=== PATIENT | male | born 1980 | race African-American/Black ===

== ENCOUNTER 2017-01-07 08:07 | Observation (INO) | payer BC, OTHER, SELFPAY ==
[~2017-01-07 08:07] MED LIST: Regadenoson 0.4 MG/5 ML SYRINGE ONE
[2017-01-07 08:39] LABS: Hematocrit 52.1 % (42.0-52.0); Mean Platelet Volume 9.8 fL (7.4-10.4); Red Blood Cell (RBC) Count 5.67 mill/uL (4.70-6.10); White Blood Cell (WBC) Count 7.6 thou/uL (4.8-10.8)
[2017-01-07 08:41] LABS: PTT 30.4 SEC (22.9-36.1); Prothrombin Time 13.5 SEC (12.0-14.7)
--- NOTE | 2017-01-07 08:42 | RAD ---
PORTABLE CHEST ONE VIEW: 01/07/2017 8:23 a.m. HISTORY: Chest pain. COMPARISON: 10/13/2015 FINDINGS: The heart size is prominent but stable. The lungs are well expanded without focal areas of consolid ation, pneumothorax, eliane pulmonary edema, or pleural effusions. IMPRESSION: No acute process. POS: SILAS
[2017-01-07 08:55] LABS: Digoxin Less than 0.15 ng/mL (0.8-2.0)
[2017-01-07 08:57] LABS: ALT (SGPT) 61 U/L (8-55); AST (SGOT) 25 U/L (5-34); Alkaline Phosphatase 93 U/L (40-150); Anion Gap 10 mmol/L (10-20); BUN (Urea Nitrogen) 14 mg/dL (8.9-20.6); Bilirubin, Total 0.5 mg/dL (0.2-1.2); CK (CPK) 501 U/L (30-200); Calc. Creatinine Clearance 0 mL/min (70-130); Calcium 9.7 mg/dL (7.8-10.44); Carbon Dioxide 25 mmol/L (22-29); Chloride 105 mmol/L (98-107); Estimated GFR-MDRD Greater than 90; Globulin 3.8 g/dL (2.4-3.5); Lipase 91 U/L (8-78); Protein, Total 7.9 g/dL (6.0-8.3)
[2017-01-07 09:01] LABS: Troponin I Less than 0.010 ng/mL (< 0.028)
[2017-01-07 09:27] LABS: Band 1 % (5-11); Neutrophil 53 % (42-75); Reactive Lymphocytes 1 % (0-10)
[2017-01-07] MEDS ORDERED: Aspirin 325 MG TAB ONE (09:45)
[2017-01-07] MEDS ORDERED: Nitroglycerin 2% Ointment 1 INCH/1 GM Packet ONE (09:45)
[2017-01-07] MEDS ORDERED: Bisacodyl 5 MG TAB PO PRN (10:22)
[2017-01-07] MEDS ORDERED: Acetaminophen 325 MG TAB PO PRN (10:22)
[2017-01-07] MEDS ORDERED: Acetaminophen 650 MG Suppository PR PRN (10:22)
[2017-01-07] MEDS ORDERED: Nitroglycerin 0.4 MG TAB (25 Tab Bottle) PO PRN (10:22)
[2017-01-07] MEDS ORDERED: Morphine 2 MG/ML SYRINGE SLOW IVP PRN (11:10)
--- NOTE | 2017-01-07 11:40 | HP ---
PRIMARY CARE PHYSICIAN: Wei Morocho M.D. CHIEF COMPLAINT: Chest pain. HISTORY OF PRESENT ILLNESS: Mr. Washburn is a pleasant 36-year-old gentleman who was seen at [facility] on 01/07/2017. He reports that he developed retrosternal chest pain around 06:45 a.m. today. He reports that it is over the lower part of his chest, pressure-like sensation, 10/10 at its worst, currently 7/10, not accompanied by shortness of breath or nausea. No known aggravating or relieving factors and nonradi ating. He came to the emergency room because of ongoing chest pain. He had a nuclear stress test in 11/2014, which showed mild hypokinesis of the inferior wall and no r eversible defect. The following complete review of systems was negative, unless otherwise mentioned in the HPI or belo w: Constitutional: Weight loss or gain, sense of well-being, ability to conduct usual activities, exer cise tolerance. Skin/Breast: Rash, itching, changes in hair growth or loss, nail changes, breast lumps, tenderness, swelling, nipple discharge. Eyes: Vision, double vision, tearing, blind spots, pain. ENT/Mouth: Headaches (location, time of onset, duration, precipitating factors), vertigo, lighthead edness, injury. Vision, double vision, tearing, blind spots, pain, nose bleeding, colds, obstruction , discharge, dental difficulties, gingival bleeding, dentures, neck stiffness, pain, tenderness, mas ses in thyroid or other areas. Cardiovascular: Precordial pain, substernal distress, palpitations, syncope, dyspnea on exertion, o rthopnea, nocturnal paroxysmal dyspnea, edema, cyanosis, hypertension, heart murmurs, varicosities, phlebitis, claudication. Respiratory: Pain, shortness of breath, wheezing, stridor, cough, hemoptysis, fever or night sweats . Gastrointestinal: Poor appetite, dysphagia, indigestion, abdominal pain, heartburn, eructation, kavita sea, vomiting, hematemesis, jaundice, constipation, or diarrhea, abnormal stools (fanny-colored, alberto y, bloody, greasy, foul smelling), flatulence, hemorrhoids, recent changes in bowel habits. Genitourinary: Urgency, frequency, dysuria, nocturia, hematuria, polyuria, oliguria, unusual (or ch julia in) color of urine, stones, hesitancy, change in size of stream, dribbling, acute retention or incontinence, libido, potency. Musculoskeletal: Pain, swelling, redness or heat of muscles or joints, limitation, of motion, muscu lar weakness, atrophy, cramps. Neurologic/Psychiatric: Convulsions, paralyses, tremor, incoordination, paraesthesias, difficulties with memory of speech, sensory or motor disturbances, or muscular coordination (ataxia, tremor), em otional problems, anxiety, depression, previous psychiatric care, unusual perceptions, hallucination s. Allergy/Immunologic: Skin rash, anemia, bleeding tendency, polydipsia, polyuria, intolerance to hea t or cold. PAST MEDICAL HISTORY: Significant for obstructive sleep apnea syndrome, hypertension, and morbid ob esity. PAST SURGICAL HISTORY: Significant for appendectomy, tonsillectomy, and adenoidectomy. SOCIAL HISTORY: Occasional alcohol use, denies tobacco or recreational drug use. FAMILY HISTORY: Reports multiple family members with stroke, diabetes, high blood pressure, and mal ignancy. ALLERGIES: No known drug allergies. HOME MEDICATIONS: He does not recall the names of his home medications. He thinks he takes 2 medic ations for his blood pressure. PHYSICAL EXAMINATION: GENERAL: On examination, Mr. Washburn is awake and alert, not in acute distress. VITAL SIGNS: Blood pressure is 131/79, pulse is 77. He is breathing at rate of 16 and saturating 9 8% on room air. He is afebrile. He is morbidly obese. EYES: No scleral icterus, no conjunctival pallor. ENT: Moist mucosal membranes, no oropharyngeal erythema or exudates. NECK: Supple, nontender, normal range of movement, trachea is midline. RESPIRATORY: Accessory muscles of breathing are not active. Chest wall movements are symmetric barry aterally. LUNGS: Clear to auscultation without wheeze, rhonchi or crepitations. CARDIOVASCULAR: S1 and S2 are heard, regular. Peripheral pulses are palpable. No carotid bruit, n o pericardial rub. ABDOMEN: Distended, nontender, bowel sounds heard, no hepatomegaly, no splenomegaly. NEUROLOGIC: Cranial nerves II-XII are intact. Deep tendon reflexes are 2+. PSYCHIATRIC: Normal mood, normal affect, patient is oriented to person, place and time. MUSCULOSKELETAL: Power is 5/5 in all 4 extremities, normal range of movement at all major extremity joints. SKIN: Multiple warts present, no other rashes or subcutaneous nodules. LYMPHATIC: No cervical lymphadenopathy. IMAGING AND LABORATORY DATA: Mr. Washburn's labs and investigations were reviewed. I reviewed his e lectrocardiogram, which shows normal sinus rhythm, no ST changes to suggest an acute coronary syndro me. I also reviewed his chest x-ray, which does not show any pulmonary infiltrates. Laboratory inv estigation show normal white count, normal hemoglobin, normal platelet count, INR 1.0, normal electr olytes, normal creatinine, normal AST, elevated ALT of 61, normal alkaline phosphatase, normal total bilirubin, elevated CK of 501, normal troponin I, BNP less than 10, normal albumin, and elevated gl obulin of 3.8. Lipase is elevated at 91. ASSESSMENT AND PLAN: Mr. Washburn is a pleasant 36-year-old gentleman who was seen at [facility] on 01/07/2017. His problem list includes: 1. Chest pain: Exact etiology unclear at this time. Mr. Washburn will be admitted to the hospital for observation and further workup, including stress test, telemetry monitoring. I will also check his D-dimer to rule out pulmonary embolism. He will receive pain medications as needed and nitrates as needed. We will also start him on aspirin. 2. Hypertension: Continue home medications once clarified, monitor vital signs and titrate antihyp ertensives as needed. 3. Abnormal liver function tests: Likely secondary to rhabdomyolysis, given isolated elevation of ALT. 4. Rhabdomyolysis: CK is mildly elevated. Provide intravenous hydration. 5. Elevated lipase: Etiology is unclear. The patient does not complain of any abdominal pain, abd omen is nontender. Likely not a significant finding. Many thanks for allowing me to participate in your patient's care. Please feel free to contact me w ith any questions or concerns. LEVEL OF RISK: High. LEVEL OF COMPLEXITY: High.
[2017-01-07 11:57] VITALS: BMI 34.7
[2017-01-07 12:53] LABS: Troponin I Less than 0.010 ng/mL (< 0.028)
[2017-01-07 14:43] LABS: Amphetamine Not Detected (NotDetected); Methadone Not Detected (NotDetected); Methamphetamine Not Detected (NotDetected)
[2017-01-07] MEDS ORDERED: ISOVUE-370 76%-LOCM 1 ML ONE (15:04)
[2017-01-07] MEDS ORDERED: Regadenoson 0.4 MG/5 ML SYRINGE ONE (15:13)
[2017-01-07 15:59] LABS: Troponin I Less than 0.010 ng/mL (< 0.028)
[2017-01-07] MEDS: Sodium Chloride 0.9% 1,000 ML IV SCH (16:47)
--- NOTE | 2017-01-07 17:23 | NM ---
CARDIAC SPECT: CLINICAL HISTORY: 36-year-old male with chest pain. TECHNIQUE: A stress-only myocardial perfusion scan was performed following the intravenous administration of 33 mCi technetium-99m sestamibi. Pharmacologic stress with Lexiscan was monitored and interpreted by Chacho Peters. FINDINGS: Homogeneous tracer distribution is seen in the myocardial segments on the post stress images. GATED SPECT LVEF: 56%. WALL MOTION EXAM: Normal. IMPRESSION: Normal post stress myocardial perfusion scan. POS: SILAS
--- NOTE | 2017-01-07 20:08 | CT ---
CONTRAST ENHANCED CTA OF THE CHEST: History: 36-year-old male with history of chest pain, shortness of breath. Technique: Contrast enhanced CTA of the chest performed. 2D and 3D reconstructed images performed on independent workstation. FINDINGS: There is no evidence of pulmonary parenchymal masses or lesion. No evidence of mediastinal axillary or hilar pathology seen. No evidence of aortic abnormality seen. Coronary arteries demonstrate no significant evidence of calcifications. No evidence of filling defects seen in the pulmonary arteries to suggest pulmonary emboli. IMPRESSION: Unremarkable CTA chest. POS: SILAS
[2017-01-08] MEDS: Sodium Chloride 0.9% 1,000 ML IV SCH (00:38)
[2017-01-08 05:12] LABS: Anion Gap 9 mmol/L (10-20); BUN (Urea Nitrogen) 10 mg/dL (8.9-20.6); Calc. Creatinine Clearance 200 mL/min (70-130); Calcium 9.1 mg/dL (7.8-10.44); Carbon Dioxide 26 mmol/L (22-29); Chloride 107 mmol/L (98-107); Estimated GFR-MDRD Greater than 90
[2017-01-08 05:42] LABS: Hematocrit 45.7 % (42.0-52.0); Mean Platelet Volume 9.6 fL (7.4-10.4); Neutrophil 45 % (42-75); Reactive Lymphocytes 3 % (0-10); Red Blood Cell (RBC) Count 5.15 mill/uL (4.70-6.10); White Blood Cell (WBC) Count 5.5 thou/uL (4.8-10.8)
[2017-01-08] MEDS ORDERED: Aspirin 325 MG TAB PO SCH (09:00)
[2017-01-08 11:53] VITALS: BP 142/81; TEMP 98.4
--- NOTE | 2017-01-08 12:40 | DIS ---
PRIMARY CARE PROVIDER: Wei Morocho M.D. DATE OF ADMISSION: 01/07/2017 DATE OF DISCHARGE: 01/08/2017 DISCHARGE DIAGNOSES: Chest pain. CONDITION OF PATIENT AT THE TIME OF DISCHARGE: Stable. I assessed Mr. Washburn on the day of discha rge. He denies any chest pain or shortness of breath. PHYSICAL EXAMINATION VITAL SIGNS: Stable. HEART: S1 and S2 are heard, regular. LUNGS: Clear to auscultation bilaterally. DISCHARGE MEDICATIONS: Aspirin 81 mg daily, Synthroid 75 mcg daily, losartan 100 mg daily, omeprazo le 20 mg 2 times a day, and amlodipine 10 mg daily. HOSPITAL COURSE: Mr. Washburn is a pleasant 36-year-old gentleman, who was admitted to [facility] on 01/07/2017 for retrosternal chest discomfort. He had a nuclear stress test, which was normal, with left ventricular ejection fraction of 56%. He also had a CT angiogram of th e chest, which was unremarkable. On the day of discharge, Mr. Washburn has a normal CBC, normal electrolytes, and normal creatinine of 0.87. He had elevated creatinine kinase level of 501 at the time of admission and received intravenous flu ids. He also had elevated lipase of 91 at the time of admission. Many thanks for allowing me to participate in your patient's care. Please feel free to contact me i f any questions or concerns. DISCHARGE DESTINATION: Home.
== END 2017-01-08 11:55 | disposition home or self-care (01) ==
LOC: ERS 08:07 → 2SW 11:29
PROVIDERS: ADMIT Internal Medicine; ATTEND Internal Medicine
DX: R07.2 Precordial pain (principal); G47.33 Obstructive sleep apnea (adult) (pediatric); E66.01 Morbid (severe) obesity due to excess calories; I10 Essential (primary) hypertension; M62.82 Rhabdomyolysis; R94.5 Abnormal results of liver function studies; Z68.34 Body mass index [BMI] 34.0-34.9, adult; Z79.82 Long term (current) use of aspirin; Z79.899 Other long term (current) drug therapy; Z90.49 Acquired absence of other specified parts of digestive tract; Z98.890 Other specified postprocedural states
CPT/HCPCS: 36415; 71010; 71275; 78452; 80048; 80053; 80162; 80306; 82150; 82550; 82553; 83690; 83880; 84484; 85025; 85379; 85610; 85730; 93005; 93017; 94760; 96360; 96361; A9500; G0378; J2785

== ENCOUNTER 2017-10-20 18:21 | Observation (INO) | payer BC ==
[2017-10-20 18:50] LABS: #Eosinphils 0.1 thou/uL (0.0-0.7); #Lymphocytes 2.5 thou/uL (1.20-3.40); #Monocytes 0.5 thou/uL (0.11-0.59); #Neutrophils 2.9 thou/uL (1.40-6.50); %Basophils 0.4 % (0.0-1.0); %Lymphocytes 41.6 % (21.0-51.0); %Monocytes 7.9 % (0.0-10.0); %Neutrophils 48.1 % (42.0-75.0); Hemoglobin 15.7 g/dL (14.0-18.0); Mean Corpuscular HGB CONC 33.2 g/dL (32.0-36.0); Mean Corpuscular Hemoglobin 29.3 pg (27.0-31.0); Mean Corpuscular Volume 88.1 fL (78.0-98.0); Mean Platelet Volume 9.7 fL (7.4-10.4); Platelet Count 172 thou/uL (130-400); Red Blood Cell (RBC) Count 5.37 mill/uL (4.70-6.10)
[2017-10-20 19:13] LABS: ALT (SGPT) 55 U/L (8-55); AST (SGOT) 30 U/L (5-34); Albumin 4.3 g/dL (3.5-5.0); Alkaline Phosphatase 83 U/L (40-150); Anion Gap 15 mmol/L (10-20); BUN (Urea Nitrogen) 9 mg/dL (8.9-20.6); Bilirubin, Total 0.4 mg/dL (0.2-1.2); CK (CPK) 499 U/L (30-200); Calc. Creatinine Clearance 0 mL/min (70-130); Calcium 9.7 mg/dL (7.8-10.44); Carbon Dioxide 19 mmol/L (22-29); Chloride 109 mmol/L (98-107); Estimated GFR-MDRD Greater than 90; Globulin 3.9 g/dL (2.4-3.5); Glucose 137 mg/dL (70-105); Potassium 4.1 mmol/L (3.5-5.1); Protein, Total 8.2 g/dL (6.0-8.3); Sodium 139 mmol/L (136-145)
[2017-10-20 19:16] LABS: CKMB 2.9 ng/mL (0-6.6); Troponin I Less than 0.010 ng/mL (< 0.028)
--- NOTE | 2017-10-20 19:20 | RAD ---
FRONTAL VIEW CHEST: INDICATIONS: Chest pain. COMPARISON: 01/07/2017 FINDINGS: There is prominence of the cardiac silhouette and pulmonary vasculature. There is elevation of the r ight hemidiaphragm. No significant effusion or discrete pneumothorax. IMPRESSION: Prominent cardiac silhouette and pulmonary vasculature, stable appearing. Correlate clinically. POS: SILAS
[2017-10-20] MEDS ORDERED: Nitroglycerin 0.4 MG TAB (25 Tab Bottle) ONE (19:27)
[2017-10-20] MEDS ORDERED: Ketorolac Tromethamine 30 MG/ML VIAL ONE (20:13)
[2017-10-20] MEDS ORDERED: Ondansetron HCl/PF 4 MG/2 ML Vial IVP PRN (21:46)
[2017-10-20] MEDS ORDERED: Acetaminophen 325 MG TAB PO PRN (21:46)
[2017-10-20] MEDS ORDERED: Aspirin 325 MG TAB PO SCH (22:00)
[2017-10-20 22:20] LABS: Troponin I Less than 0.010 ng/mL (< 0.028)
[2017-10-20 23:03] VITALS: BMI 43.7
[2017-10-21 01:40] LABS: Troponin I Less than 0.010 ng/mL (< 0.028)
--- NOTE | 2017-10-21 01:40 | HP ---
CODE STATUS: FULL CODE. PRIMARY CARE DOCTOR: Yudith. TIME OF EVALUATION: 8:35 p.m. CHIEF COMPLAINT: Chest pain. HISTORY OF PRESENT ILLNESS: This is a 37-year-old male patient with history of obesity, hypothyroidi sm, sleep apnea, hypertension, admitted to the hospital after having chest pain, he describes was in the middle of the chest, chest pain has been for the past year, radiating to the left side, he has paez d a stress test 1 year ago that was negative. The pain is associated with exertion, no clear allevia ting factors. He did report having some relief with aspirin. Reported as pressure-like. REVIEW OF SYSTEMS: Constitutional: No fever, no chills, generalized weakness. Respiratory: No cou gh, sputum production or shortness of breath. Cardiovascular: The patient had chest pain as describ ed in HPI. No palpitation. No shortness of breath. Gastrointestinal: No nausea, vomiting, diarrhe a, or abdominal pain. 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 Genitourinary: No burni ng on urination. Extremities: No leg swelling. All other systems reviewed and negative except for the findings mentioned above. PAST MEDICAL HISTORY: Has been mentioned in the HPI. PAST SURGICAL HISTORY: Appendectomy, tonsillectomy, heart catheterization more than a year ago. PSYCHIATRIC HISTORY: No previous psychiatric history. SOCIAL HISTORY: No drugs. No smoking history. No alcohol, only socially. FAMILY HISTORY: Reviewed with the patient's mother and father had history of cardiac problems from t he father's side, diabetes, hypertension. Mother with lung cancer. DRUG ALLERGIES: No known drug allergies. REPORTED MEDICATIONS: Losartan, aspirin, Norvasc, levothyroxine. PHYSICAL EXAMINATION: VITAL SIGNS: On presentation, blood pressure 145/114, heart rate 85, respiratory rate was 18, temper ature 98.4, pain was 6/10, saturation 96% on room air. GENERAL APPEARANCE: The patient is obese, alert, oriented, no acute distress. HEENT: Eyes: Normal conjunctivae. Moist oral mucosa. Anicteric. NECK: No JVD. RESPIRATORY: Bilateral air entry. No rales, no wheezing. Symmetric expansion. CARDIOVASCULAR: Normal rate, regular rhythm. No murmurs, no gallop, no edema. ABDOMEN: Soft, normal bowel sounds. MUSCULOSKELETAL: Baseline range of motion and strength. No tenderness. SKIN: Warm and intact. No pallor, no rash or redness. NEUROLOGIC: Baseline sensorium. No evidence of any new focal weakness. Baseline speech. Cranial n erves seem to be intact. PSYCHIATRIC: The patient is in good mood. No anxiety, oriented. Optimal judgment. IMAGING: EKG was reviewed. The patient has sinus rhythm with occasional PVCs, possible left atrial enlargement, left axis deviation, incomplete LBBB, ventricular rate 81, TX 172, QRS 106, QT corrected 434. Chest x-ray was reviewed. The patient has prominent cardiac silhouette and pulmonary vascular , stable appearing. Correlate clinically. LABORATORY DATA: Reviewed. White count 6, hemoglobin 15, MCV 88, platelet count 172. Chemistry: S odium 139, potassium 4.1, chloride 109, carbon dioxide 19, anion gap 15, BUN 9, creatinine 0.9, GFR 9 0, glucose 137. LFTs were normal. CK 499. Troponin was negative x2. Globulin 3.9. ASSESSMENT AND PLAN: The patient will be placed in the hospital with following medical problems: 1. Acute chest pain, rule out acute coronary syndrome. The patient has risk factors for acute coron devin syndrome, we will trend troponins, monitor on tele, we will do stress test in the morning. Risks and benefits have been discussed with the patient and he verbalized understanding of what is willing to take the test. 2. History of hypertension, was uncontrolled at some point during admission, reconcile home medicati ons. We will adjust treatment as needed. 3. Hypothyroidism. Continue hormone replacement. 4. Morbid obesity. Advised to lose weight. 5. Deep venous thrombosis prophylaxis.
[2017-10-21 04:45] LABS: Anion Gap 16 mmol/L (10-20); BUN (Urea Nitrogen) 11 mg/dL (8.9-20.6); Calc. Creatinine Clearance 202 mL/min (70-130); Calcium 9.1 mg/dL (7.8-10.44); Carbon Dioxide 19 mmol/L (22-29); Chloride 108 mmol/L (98-107); Estimated GFR-MDRD Greater than 90; Glucose 174 mg/dL (70-105); Potassium 3.8 mmol/L (3.5-5.1); Sodium 139 mmol/L (136-145)
[2017-10-21 05:11] LABS: Band 1 % (5-11); Eosinophils 3 % (0-10); Hemoglobin 14.9 g/dL (14.0-18.0); Lymphocytes 37 % (21-51); MDiff Complete? YES; Mean Corpuscular HGB CONC 32.8 g/dL (32.0-36.0); Mean Corpuscular Hemoglobin 29.4 pg (27.0-31.0); Mean Corpuscular Volume 89.7 fL (78.0-98.0); Mean Platelet Volume 10.2 fL (7.4-10.4); Monocytes 8 % (0-10); Neutrophil 51 % (42-75); Platelet Count 160 thou/uL (130-400); RBC Distribution Width 13.8 % (11.5-14.5); Red Blood Cell (RBC) Count 5.07 mill/uL (4.70-6.10); White Blood Cell (WBC) Count 5.2 thou/uL (4.8-10.8)
[2017-10-21] MEDS ORDERED: Levothyroxine Sodium 75 MCG TAB PO SCH (06:00)
[2017-10-21] MEDS ORDERED: Aspirin 325 MG TAB PO SCH (08:00)
[2017-10-21] MEDS ORDERED: Aspirin 81 mg Enteric Coated Tablet PO SCH (09:00)
[2017-10-21] MEDS ORDERED: Amlodipine 10 MG TAB PO SCH (09:00)
[2017-10-21] MEDS ORDERED: Losartan 25 MG TAB PO SCH (09:00)
[2017-10-21] MEDS ORDERED: Enoxaparin Sodium 40 MG/0.4 ML SYRINGE SC SCH (09:00)
[2017-10-21] MEDS ORDERED: Communication Order-Pharmacy FS SCH (11:30)
[2017-10-21] MEDS ORDERED: Nitroglycerin 100MG/250ML BOT 250 ML ONE (11:34)
[2017-10-21] MEDS ORDERED: Heparin 10,000 UNITS/1 ML VIAL ONE (11:34)
[2017-10-21] MEDS ORDERED: Verapamil 5 MG/2 ML VIAL ONE (11:34)
[2017-10-21] MEDS ORDERED: Sodium Chloride 0.9% 1,000 ML IV SCH (11:45)
--- NOTE | 2017-10-21 11:47 | CON ---
DATE OF CONSULTATION: 10/21/2017 REASON FOR CONSULTATION: Chest pain. HISTORY OF PRESENT ILLNESS: Mr. Washburn is a very pleasant 37-year-old gentleman wh o comes to the hospital for chest pain. He had chest pain that started yesterday while he was just s itting around, not doing anything and it lasted for a whole day. Because the pain was just getting w orse he decided to come in for evaluation. He has had episodes of chest pain several times in the pa st. The last time he was here in the hospital was in December of last year at which point he had a st ress test that was normal. He was sent home. He tells me that he has had this problem with chest pa in for many years now. Last heart catheterization was about 11 years ago [place] [address] Hancock. He was told his coronaries looked normal. He has continued to have chest pain almost on a daily basis, but this time it was so bad that he decided to come in for evaluation. PAST MEDICAL HISTORY: 1. Hypothyroidism. 2. Sleep apnea. 3. Hypertension. 4. Obesity. SOCIAL HISTORY: No alcohol, tobacco or drugs. He works as a forest officer. PAST SURGICAL HISTORY: 1. Appendectomy. 2. Tonsillectomy. 3. Heart catheterization in the past as well. FAMILY HISTORY: Noncontributory. REVIEW OF SYSTEMS: A 12-point review of systems was done and is all negative unless stated in the hi story of present illness. OUTPATIENT MEDICATIONS: 1. Losartan 100 mg a day. 2. Synthroid 75 mcg a day. 3. Aspirin 81 a day. 4. Amlodipine 10 mg. 5. Omeprazole 20 mg b.i.d. ALLERGIES: No known drug allergies. PHYSICAL EXAMINATION: VITAL SIGNS: Temperature 97.9, pulse 78, respiration rate 20, satting 97% on room air, blood pressur e 117/57. GENERAL: Awake, alert, oriented x3, in no distress. HEENT: Normocephalic, atraumatic. NECK: Supple. LUNGS: Lungs are clear. CARDIOVASCULAR: S1, S2, no S3, S4, no murmurs or rubs. ABDOMEN: Soft, positive bowel sounds. EXTREMITIES: No edema. SKIN: Warm and dry. LABORATORY WORK: Reviewed. Troponin is negative x3. CBC and CMP are unremarkable. GFR is greater than 90. BNP was undetectable. Albumin was 4.3. Chest x-ray was unremarkable. EKG was unremarkable, showed no evidence of acute ischemia. ASSESSMENT AND PLAN: Chest pain: He has had a normal stress test in the last year. We will plan to further risk stratification with a heart catheterization. I spoke with him at length with the risks and benefits of the procedure. The risks included, but not limited to stroke, MS, , bleeding, need for blood transfusion, limb loss, organ loss. He understands and verbalized understanding of th is and he agrees to proceed. He also understands about risk of contrast reactions, he has had in the past, but this is unlikely. Renal dysfunction is also an issue. He verbalized understanding of all of this and we will proceed. Further recommendations if results of coronary angiogram are negative .
[2017-10-21] MEDS ORDERED: Fentanyl 100 MCG/2 ML VIAL ONE (12:09)
[2017-10-21] MEDS ORDERED: Midazolam HCl 2 mg/2 ml Vial ONE (12:09)
[2017-10-21] MEDS ORDERED: traMADol HCl 50 MG TAB PO PRN (12:48)
[2017-10-21] MEDS ORDERED: Acetaminophen/Codeine 30-300mg Tablet PO PRN (12:48)
[2017-10-21] MEDS ORDERED: Sodium Chloride 0.9% 200 ML IV SCH (13:00)
[2017-10-21] MEDS ORDERED: Iopamidol 370 76% 100 ML VIAL ONE (13:24)
[2017-10-21 13:25] VITALS: BP 140/80; TEMP 97.8
[2017-10-21] MEDS ORDERED: Carvedilol 3.125 MG TAB PO SCH (17:00)
== END 2017-10-21 17:41 | disposition home or self-care (01) ==
LOC: ERS 18:21 → 2SW 20:09
PROVIDERS: ADMIT Hospitalist; ATTEND Internal Medicine Cardiovascular Disease
PROC: B2111ZZ Fluoroscopy of Multiple Coronary Arteries using Low Osmolar Contrast (ICD-10-PCS; principal; 2017-10-21)
PROC: B2151ZZ Fluoroscopy of Left Heart using Low Osmolar Contrast (ICD-10-PCS; 2017-10-21)
DX: R07.9 Chest pain, unspecified (principal); I10 Essential (primary) hypertension; E03.9 Hypothyroidism, unspecified; E66.01 Morbid (severe) obesity due to excess calories; Z79.82 Long term (current) use of aspirin; Z79.899 Other long term (current) drug therapy
CPT/HCPCS: 36415; 71045; 80048; 80053; 82553; 83880; 84484; 85025; 93005; 93458; 94760; 96361; 96374; 99152; 99153; C1769; G0378; J1644; J1650; J1885; J2250; J3010

== ENCOUNTER 2018-07-13 20:18 | Emergency (ER) | payer BC ==
[2018-07-13 21:43] LABS: #Basophils 0.1 thou/uL (0.0-0.2); #Eosinphils 0.1 thou/uL (0.0-0.7); #Lymphocytes 2.5 thou/uL (1.20-3.40); #Monocytes 0.6 thou/uL (0.11-0.59); #Neutrophils 2.5 thou/uL (1.40-6.50); %Basophils 2.2 % (0.0-1.0); %Eosinophils 1.7 % (0.0-10.0); %Monocytes 9.9 % (0.0-10.0); %Neutrophils 43.2 % (42.0-75.0); Hemoglobin 15.4 g/dL (14.0-18.0); Mean Corpuscular HGB CONC 32.1 g/dL (32.0-36.0); Mean Corpuscular Hemoglobin 28.4 pg (27.0-31.0); Mean Corpuscular Volume 88.3 fL (78.0-98.0); Mean Platelet Volume 9.5 fL (7.4-10.4); Platelet Count 194 thou/uL (130-400); RBC Distribution Width 13.6 % (11.5-14.5); Red Blood Cell (RBC) Count 5.43 mill/uL (4.70-6.10); White Blood Cell (WBC) Count 5.7 thou/uL (4.8-10.8)
--- NOTE | 2018-07-13 21:58 | RAD ---
PORTABLE CHEST ONE VIEW: Date: 07-13-18 Time: 9:41 p.m. History: High blood pressure, nausea. FINDINGS: Comparison made with the exam of 05-20-17. The heart is enlarged with continued elevation of the right hemidiaphragm. No lobar consolidation, pn eumothoraces, eliane pulmonary edema or pleural effusion was seen. IMPRESSION: No acute process. POS: SCOOBYH
[2018-07-13] MEDS ORDERED: diphenhydrAMINE 50 MG/ML VIAL ONE (21:59)
[2018-07-13] MEDS ORDERED: Ketorolac Tromethamine 30 MG/ML VIAL ONE (21:59)
[2018-07-13] MEDS ORDERED: Metoclopramide HCl 10 MG/2 ML VIAL ONE (21:59)
[2018-07-13 22:07] LABS: ALT (SGPT) 52 U/L (8-55); AST (SGOT) 23 U/L (5-34); Albumin 4.3 g/dL (3.5-5.0); Alkaline Phosphatase 90 U/L (40-150); Anion Gap 14 mmol/L (10-20); BUN (Urea Nitrogen) 10 mg/dL (8.9-20.6); Bilirubin, Total 0.3 mg/dL (0.2-1.2); CK (CPK) 299 U/L (30-200); Calc. Creatinine Clearance 0 mL/min (70-130); Calcium 9.7 mg/dL (7.8-10.44); Carbon Dioxide 23 mmol/L (22-29); Chloride 106 mmol/L (98-107); Estimated GFR-MDRD Greater than 90; Globulin 3.4 g/dL (2.4-3.5); Glucose 95 mg/dL (70-105); Potassium 3.8 mmol/L (3.5-5.1); Protein, Total 7.7 g/dL (6.0-8.3); Sodium 139 mmol/L (136-145)
== END 2018-07-14 00:28 | disposition home or self-care (01) ==
LOC: ERS 20:18
DX: I10 Essential (primary) hypertension (principal); R51 Headache; E66.9 Obesity, unspecified; G47.30 Sleep apnea, unspecified; E03.9 Hypothyroidism, unspecified; Z79.899 Other long term (current) drug therapy; Z79.82 Long term (current) use of aspirin
CPT/HCPCS: 36415; 71045; 80053; 82550; 83880; 84484; 85025; 93005; 94760; 96365; 96366; 96375; J1200; J1885; J2765

== ENCOUNTER 2018-08-19 23:17 | Emergency (ER) | payer BC ==
[2018-08-19] MEDS ORDERED: Acetaminophen 500 MG TAB ONE (23:43)
[2018-08-19] MEDS ORDERED: Nitroglycerin 0.4 MG TAB 1 EACH ONE (23:43)
[2018-08-19 23:45] LABS: #Basophils 0.1 thou/uL (0.0-0.2); #Eosinphils 0.1 thou/uL (0.0-0.7); #Lymphocytes 2.5 thou/uL (1.20-3.40); #Monocytes 0.4 thou/uL (0.11-0.59); #Neutrophils 2.3 thou/uL (1.40-6.50); %Basophils 1.4 % (0.0-1.0); %Eosinophils 2.4 % (0.0-10.0); %Lymphocytes 46.4 % (21.0-51.0); %Monocytes 6.7 % (0.0-10.0); %Neutrophils 43.2 % (42.0-75.0); Hemoglobin 15.5 g/dL (14.0-18.0); Mean Corpuscular HGB CONC 32.1 g/dL (32.0-36.0); Mean Corpuscular Hemoglobin 28.4 pg (27.0-31.0); Mean Corpuscular Volume 88.7 fL (78.0-98.0); Mean Platelet Volume 9.4 fL (7.4-10.4); Platelet Count 186 thou/uL (130-400); RBC Distribution Width 13.6 % (11.5-14.5); Red Blood Cell (RBC) Count 5.46 mill/uL (4.70-6.10); White Blood Cell (WBC) Count 5.4 thou/uL (4.8-10.8)
[2018-08-20 00:06] LABS: ALT (SGPT) 45 U/L (8-55); AST (SGOT) 23 U/L (5-34); Albumin 4.1 g/dL (3.5-5.0); Alkaline Phosphatase 90 U/L (40-150); Anion Gap 13 mmol/L (10-20); BUN (Urea Nitrogen) 6 mg/dL (8.9-20.6); Bilirubin, Total 0.3 mg/dL (0.2-1.2); Calc. Creatinine Clearance 0 mL/min (70-130); Calcium 9.7 mg/dL (7.8-10.44); Carbon Dioxide 24 mmol/L (22-29); Chloride 104 mmol/L (98-107); Estimated GFR-MDRD Greater than 90; Glucose 153 mg/dL (70-105); Potassium 3.8 mmol/L (3.5-5.1); Protein, Total 8.1 g/dL (6.0-8.3); Sodium 137 mmol/L (136-145)
--- NOTE | 2018-08-20 00:27 | RAD ---
EXAM: CHEST ONE VIEW HISTORY: Chest pain and left arm pain. Headache. COMPARISON: 07/13/2018 FINDINGS: Cardiac silhouette is magnified by projection but stable in size. The pulmonary vasculature is within normal limits. There is mild elevation right hemidiaphragm similar to prior exam. The lungs are clear. The osseous structures are intact. IMPRESSION: No acute cardiopulmonary process.
[2018-08-20 01:43] LABS: Troponin I 0.011 ng/mL (< 0.028)
== END 2018-08-20 02:05 | disposition home or self-care (01) ==
LOC: ERS 23:17
DX: R07.89 Other chest pain (principal); E03.9 Hypothyroidism, unspecified; G47.30 Sleep apnea, unspecified; E66.9 Obesity, unspecified; Z79.82 Long term (current) use of aspirin; Z79.899 Other long term (current) drug therapy
CPT/HCPCS: 36415; 71045; 80053; 84484; 85025; 93005

== ENCOUNTER 2018-10-21 15:32 | Observation (INO) | payer BC ==
--- NOTE | 2018-10-21 16:10 | RAD ---
EXAM: Two views chest PROVIDED CLINICAL HISTORY: Left-sided chest pain which started yesterday. COMPARISON: 08/19/2018 FINDINGS: Cardiac silhouette and pulmonary vasculature are within normal limits. The lungs are clear. The osse ous structures have a normal appearance. IMPRESSION: No acute cardiopulmonary process.
[2018-10-21 16:38] LABS: #Eosinphils 0.1 thou/uL (0.0-0.7); #Lymphocytes 1.9 thou/uL (1.20-3.40); #Monocytes 0.5 thou/uL (0.11-0.59); #Neutrophils 2.5 thou/uL (1.40-6.50); %Basophils 0.5 % (0.0-1.0); %Eosinophils 2.1 % (0.0-10.0); %Lymphocytes 38.7 % (21.0-51.0); %Monocytes 9.2 % (0.0-10.0); %Neutrophils 49.6 % (42.0-75.0); Hemoglobin 15.9 g/dL (14.0-18.0); Mean Corpuscular HGB CONC 32.3 g/dL (32.0-36.0); Mean Corpuscular Hemoglobin 28.2 pg (27.0-31.0); Mean Corpuscular Volume 87.4 fL (78.0-98.0); RBC Distribution Width 13.7 % (11.5-14.5); Red Blood Cell (RBC) Count 5.64 mill/uL (4.70-6.10)
[2018-10-21 17:03] LABS: ALT (SGPT) 46 U/L (8-55); AST (SGOT) 33 U/L (5-34); Albumin 4.2 g/dL (3.5-5.0); Alkaline Phosphatase 76 U/L (40-150); Anion Gap 14 mmol/L (10-20); BUN (Urea Nitrogen) 11 mg/dL (8.9-20.6); Bilirubin, Total 0.6 mg/dL (0.2-1.2); CK (CPK) 435 U/L (30-200); Calc. Creatinine Clearance 0 mL/min (70-130); Calcium 9.8 mg/dL (7.8-10.44); Carbon Dioxide 24 mmol/L (22-29); Chloride 104 mmol/L (98-107); Estimated GFR-MDRD Greater than 90; Globulin 4.9 g/dL (2.4-3.5); Glucose 165 mg/dL (70-105); Potassium 4.2 mmol/L (3.5-5.1); Protein, Total 9.1 g/dL (6.0-8.3); Sodium 138 mmol/L (136-145)
[2018-10-21 17:06] LABS: Large Platelets SLIGHT; MDiff Complete? YES; Mean Platelet Volume 10.3 fL (7.4-10.4); Platelet Clumps SLIGHT; Platelet Morphology Comment PLT clumps seen-ADEQ; RBC Morphology Normal
[2018-10-21] MEDS ORDERED: Nitroglycerin 0.4 MG TAB 1 EACH ONE (19:48)
[2018-10-21 20:36] LABS: Troponin I Less than 0.010 ng/mL (< 0.028)
[2018-10-21] MEDS ORDERED: Aspirin Chewable 81 MG TAB ONE (21:56)
[2018-10-21 23:43] VITALS: BMI 43.8
[2018-10-22] MEDS ORDERED: Nitroglycerin 0.4 MG TAB (25 Tab Bottle) SL PRN (00:43)
[2018-10-22] MEDS ORDERED: Morphine 2 MG/ML SYRINGE IVP PRN (00:44)
[2018-10-22] MEDS ORDERED: Ondansetron PF 4 MG/2 ML Vial IVP PRN (01:13)
[2018-10-22] MEDS ORDERED: Rizatriptan Benzoate 10 MG MLT TAB PO PRN (01:14)
[2018-10-22] MEDS ORDERED: hydrALAZINE 20 MG/ML VIAL SLOW IVP PRN (01:15)
[2018-10-22] MEDS ORDERED: Senokot S 8.6-50 MG TAB PO PRN (05:14)
[2018-10-22] MEDS ORDERED: Sodium Chloride 0.65% Nasal 44 ML BOT EA NARE PRN (05:14)
[2018-10-22] MEDS ORDERED: Loratadine 10 MG TAB PO PRN (05:14)
[2018-10-22] MEDS ORDERED: Cepastat Lozenges 1 LOZ PO PRN (05:14)
[2018-10-22] MEDS ORDERED: Artificial Tears 18 DROP/0.9 ML EA EYE PRN (05:14)
[2018-10-22] MEDS ORDERED: Loperamide HCl 2 MG CAP PO PRN (05:14)
[2018-10-22] MEDS ORDERED: HYDROcodone/Acetaminophen 5/325 mg Tablet PO PRN (05:14)
[2018-10-22] MEDS ORDERED: Ondansetron ODT 4 MG TAB PO PRN (05:14)
[2018-10-22] MEDS ORDERED: Diabetic Tussin 200 MG/10 ML UDCUP PO PRN (05:14)
[2018-10-22] MEDS ORDERED: Zolpidem Tartrate 5 MG TAB PO PRN (05:14)
[2018-10-22] MEDS: Levothyroxine Sodium 75 MCG TAB PO SCH (05:40)
--- NOTE | 2018-10-22 09:05 | SS ---
DATE OF ADMISSION: 10/21/2018 DATE OF DISCHARGE: 10/22/2018 PRIMARY CARE PHYSICIAN: Dr. Wright. REASON FOR ADMISSION: Chest pain. HISTORY OF PRESENT ILLNESS: A 38-year-old male, who has underlying morbid obesity as well as hypertension, hypothyroidism, and migraine headache. He had several admission in our hospital for chest pain. He had cardiac catheterization that was performed in October 2017, which was normal. The patient had stress test in December 2016, which was also normal. At this time, the patient is coming in with a complaint of left-sided chest pain. The patient describes chest pain as sharp, stabbing in nature, burning discomfort without any radiation, without any association of nausea, vomiting, diarrhea, or shortness of breath. He denies any lower extremity edema or calf tenderness. He denies any palpitation, dizziness, or syncope. He does not have any orthopnea, PND, or leg swelling. The patient's pain was persistent and that is why he decided to come to emergency room for evaluation. In the emergency room, the patient had frequent premature ventricular complexes, left atrial enlargement. Chest x-ray was unremarkable. The patient's routine blood test was negative including cardiac enzymes subsequently came back negative x4. When I saw this patient in the morning, the patient had no chest pain other than mild pricking sensation on the left side. He denies any UTI symptoms. He denies any constipation, diarrhea, or acid reflux. He denies any pleurisy. He denies any immobilization or calf tenderness or edema. REVIEW OF SYSTEMS: CONSTITUTIONAL: Negative for weight loss or gain, ability to conduct usual activities. SKIN: Negative for rash, itching. EYES: Negative for double vision, pain. ENT/MOUTH: Negative for nose bleeding, neck stiffness, pain, tenderness. CARDIOVASCULAR: Negative for palpitations, dyspnea on exertion, orthopnea. RESPIRATORY: Negative for shortness of breath, wheezing, cough, hemoptysis, fever or night sweats. GASTROINTESTINAL: Negative for poor appetite, abdominal pain, heartburn, nausea, vomiting, constipation, or diarrhea. GENITOURINARY: Negative for urgency, frequency, dysuria, nocturia. MUSCULOSKELETAL: Negative for pain, swelling. NEUROLOGIC/PSYCHIATRIC: Negative for anxiety, depression. ALLERGY/IMMUNOLOGIC: Negative for skin rash, bleeding tendency. Please see my HPI for pertinent positives and negatives. All other review of systems reviewed and negative except as mentioned in HPI. PAST MEDICAL HISTORY: Morbid obesity with BMI 43; obstructive sleep apnea, on CPAP; hypertension; migraine headache; gastroesophageal reflux disease; and hypothyroidism. PAST SURGICAL HISTORY: Appendicectomy, tonsillectomy, cardiac catheterization, and adenoidectomy. PAST PSYCHIATRIC HISTORY: Reviewed and negative. SOCIAL HISTORY: The patient drinks alcohol socially. He denies any smoking. He is and lives with his . FAMILY HISTORY: No strong family history of ESRD, but the patient reports that many family member in his family has diabetes, hypertension, stroke, and heart disease. ALLERGIES: NO KNOWN DRUG ALLERGY. CURRENT HOME MEDICATIONS: 1. Norvasc 10 mg daily. 2. Synthroid 75 mcg daily. 3. Losartan 100 mg daily. 4. Nortriptyline 25 mg p.o. at bedtime. 5. Omeprazole 20 mg b.i.d. 6. Rizatriptan 10 mg b.i.d. p.r.n. EMERGENCY ROOM COURSE: The patient is given aspirin 325 mg, nitroglycerin 0.4 mg sublingual x2. PHYSICAL EXAMINATION: VITAL SIGNS: On arrival, blood pressure 146/85, pulse 93, respiratory rate 18, temperature 98.4, and saturation 98% on room air. Weight 151 kg. GENERAL: The patient is currently alert and awake, in no obvious acute distress. HEENT: Head; normocephalic, atraumatic. Eyes; pupils are round and reactive to light. Extraocular muscle intact. ENT; oropharynx within normal limits. Moist mucous membranes. No oral lesion. No pharyngeal erythema. No exudate. NECK: Supple. No JVD. No thyromegaly. No carotid bruit. No jugular venous distention. LUNGS: Clear to auscultation without any rhonchi or rales. CARDIAC: S1 and S2 regular. No murmur. No gallop. ABDOMEN: Morbid obesity, limiting examination. Bowel sounds present. Nontender. Nondistended. No organomegaly. No mass. No suprapubic tenderness. BACK: Unremarkable. No CVA tenderness. EXTREMITIES: Upper extremities, passive movement of all joints are normal. Lower extremities, no edema. Good distal pulsation. SKIN: No skin rash. HEMATOLOGICAL SYSTEM: No lymphadenopathy. NEUROLOGIC: Nonfocal examination. SIGNIFICANT LABORATORY DATA: EKG showing a normal sinus rhythm, premature ventricular complexes, left atrial enlargement. Chest x-ray based on my review no acute cardiopulmonary process. CBC; WBC 5.0, hemoglobin 15.9, and platelet test not performed due to clumps. BMP; sodium 138, potassium 4.2, chloride 104, carbon dioxide 24, BUN 11, creatinine 1.01, glucose 165, and calcium 9.8. LFT; AST 33, ALT 46, alkaline phosphatase 76, and albumin 4.2. CK 435. Troponin negative x4. Triglyceride 185, cholesterol 150, LDL 83, and HDL 30. ASSESSMENT AND PLAN: 1. Chest pain, recurrent, most likely non anginal secondary to musculoskeletal. The patient's chest pain description is nonanginal as well and he had negative cardiac cath 1 year ago. At this point, we will perform stress test for diagnostic reason and if stress test is negative, then we will consider discharging him home later on today. We will continue medical therapy with aspirin 325 mg p.o. daily. 2. Hypertension. The patient will continue his home blood pressure medication including amlodipine 10 mg daily, losartan 100 mg p.o. daily. 3. Migraine headache. The patient will continue rizatriptan and amitriptyline 25 mg p.o. at bedtime. 4. Hypothyroidism. The patient will continue Synthroid 75 mcg p.o. daily. 5. Morbid obesity with BMI of 43. Dietary education given. Weight loss education given. 6. Gastroesophageal reflux disease. The patient will continue omeprazole 20 mg p.o. b.i.d. 7. Obstructive sleep apnea. The patient will continue his CPAP machine. 8. Deep venous thrombosis prophylaxis not needed because we are expecting discharge later on today. Gastrointestinal prophylaxis. Protonix 40 mg p.o. daily. 9. Code status: The patient is full code. 10. Disposition plan: Based on stress test result. DISCHARGE DISPOSITION: Home. PRIMARY DISCHARGE DIAGNOSIS: Chest pain, ruled out acute coronary syndrome, likely musculoskeletal. SECONDARY DISCHARGE DIAGNOSES: 1. Hypertension. 2. Hypothyroidism. 3. Gastroesophageal reflux disease. 4. Migraine headaches. 5. Morbid obesity with BMI of 43. 6. Obstructive sleep apnea. PRIMARY PROCEDURE/OPERATION: None. RADIOLOGICAL INVESTIGATION: Chest x-ray, stress test. SIGNIFICANT LABORATORY DATA: Please see above in HPI. DISCHARGE MEDICATIONS: The patient will continue all his previous medication. We are prescribing Ecotrin 81 mg daily. CONTRAINDICATION: None. CODE STATUS: Full code. 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 ALLERGIES: NO KNOWN DRUG ALLERGIES. DISCHARGE PLAN: Posthospital, the patient will follow up with primary care physician in 1 week. HOSPITAL COURSE: Please see my HPI for further details. In short, the patient was admitted for chest pain. His chest pain description is nonanginal, most likely musculoskeletal. We are doing stress test for diagnostic reason. If stress test is negative, then the patient will be discharged home later on today. Job ID: [id number]
[2018-10-22] MEDS: Amlodipine 10 MG TAB PO SCH (09:40)
[2018-10-22] MEDS: Losartan 25 MG TAB PO SCH (09:40)
[2018-10-22] MEDS: Aspirin 325 MG TAB PO SCH (09:41)
[2018-10-22] MEDS ORDERED: Regadenoson 0.4 MG/5 ML SYRINGE ONE (13:28)
[2018-10-22] MEDS ORDERED: Nortriptyline HCl 25 MG CAP PO SCH (21:00)
[2018-10-23] MEDS: Levothyroxine Sodium 75 MCG TAB PO SCH (05:37)
[2018-10-23 08:20] VITALS: TEMP 97.6
--- NOTE | 2018-10-23 10:31 | NM ---
Radionucleotide stress and rest myocardial perfusion scan with CT attenuation correction and SPECT im aging Left ventricular wall motion evaluation and ejection fraction HISTORY: Chest pain. Findings Lexiscan protocol. Heterogeneous uptake of radiotracer throughout the left ventricular myocardium on the stress and rest images. A small to moderate sized area of diminished uptake involving the anteroseptal wall is unchanged from the stress to the rest images. No significant reversibility. Diminished motion and thi ckening of the septum. Ejection fraction calculated at 54%. IMPRESSION: Probable area of scarring involving the anteroseptal wall. No evidence of ischemia. Borderline LVEF of 54%.
[2018-10-23] MEDS: Aspirin 325 MG TAB PO SCH (10:54)
[2018-10-23] MEDS: Amlodipine 10 MG TAB PO SCH (10:54)
[2018-10-23] MEDS: Losartan 25 MG TAB PO SCH (10:55)
[2018-10-23 12:16] VITALS: BP 137/79
--- NOTE | 2018-10-23 16:28 | DIS ---
DATE OF ADMISSION: 10/21/2018 DATE OF DISCHARGE: 10/23/2018 DISCHARGE DISPOSITION: Home. FOLLOWUP: Follow up with primary care physician at [facility] in 1 week. DISCHARGE MEDICATIONS: Same as admission medication. A short course of Flexeril was added for muscle spasm. The patient was seen and examined on the day of discharge. Denies any new complaints. No chest pain, shortness of breath, or palpitations. BRIEF HOSPITAL COURSE: The patient is a 38-year-old male with hypertension and obstructive sleep apnea, on CPAP, presented to the emergency room with chest discomfort. Please refer to the history and physical by Dr. Nails for further details. The patient was admitted to the hospital with a diagnosis of chest discomfort, rule out acute coronary syndrome. His serial troponins were negative. He underwent a Cardiolite stress test that was negative for reversible ischemia. Ejection fraction was 54%. There was diminished motion and thickening of the septum. His chest pain is probably musculoskeletal. He continues to have some reproducible chest wall tenderness over the precordial region. He has been working out lately for losing weight. A short course of Flexeril will be helpful. His troponins were negative. Chest x-ray was negative for acute findings. He appears stable for discharge. FINAL DIAGNOSES: 1. Chest discomfort, suspected musculoskeletal. 2. Morbid obesity with a BMI of 43.8. 3. Hypertension. 4. Dyslipidemia. His fasting lipid profile showed triglyceride 185, cholesterol 150, LDL 83, HDL of 30. 5. Hypothyroidism. 6. Gastroesophageal reflux disease. 7. Obstructive sleep apnea, on CPAP. Plan of care was discussed with the patient in detail, he stated understanding. Job ID: [id number]
== END 2018-10-23 15:27 | disposition home or self-care (01) ==
LOC: ERS 15:32 → 2SW 21:30
PROVIDERS: ADMIT Hospitalist; ATTEND Hospitalist
DX: R07.89 Other chest pain (principal); I10 Essential (primary) hypertension; E78.5 Hyperlipidemia, unspecified; E03.9 Hypothyroidism, unspecified; K21.9 Gastro-esophageal reflux disease without esophagitis; G47.33 Obstructive sleep apnea (adult) (pediatric); G43.909 Migraine, unspecified, not intractable, without status migrainosus; E66.01 Morbid (severe) obesity due to excess calories; Z68.41 Body mass index [BMI] 40.0-44.9, adult; Z79.899 Other long term (current) drug therapy; Z99.89 Dependence on other enabling machines and devices
CPT/HCPCS: 36415; 71046; 78452; 80053; 80061; 82550; 84484; 85025; 93005; 93017; 96374; A9500; G0378; J2270; J2405; J2785

== ENCOUNTER 2019-05-04 13:34 | Emergency (ER) | payer BC ==
--- NOTE | 2019-05-04 14:03 | RAD ---
PA AND LATERAL CHEST: Date: 05/04/2019 COMPARISON: 10/21/2018 exam. HISTORY: Chest pain, high blood pressure. FINDINGS: Heart size is borderline. Mediastinal structures are unremarkable. Lungs are clear of infiltrates. No signs of failure. IMPRESSION: Borderline heart size. Stable chest. POS: [facility]
[2019-05-04 14:22] LABS: #Basophils 0.1 thou/uL (0.0-0.2); #Eosinphils 0.1 thou/uL (0.0-0.7); #Lymphocytes 2.5 thou/uL (1.20-3.40); #Monocytes 0.5 thou/uL (0.11-0.59); #Neutrophils 3.3 thou/uL (1.40-6.50); %Basophils 1.7 % (0.0-1.0); %Lymphocytes 38.3 % (21.0-51.0); %Monocytes 7.5 % (0.0-10.0); %Neutrophils 50.6 % (42.0-75.0); Hemoglobin 16.5 g/dL (14.0-18.0); Mean Corpuscular HGB CONC 33.2 g/dL (32.0-36.0); Mean Corpuscular Hemoglobin 29.4 pg (27.0-31.0); Mean Corpuscular Volume 88.5 fL (78.0-98.0); Platelet Count 171 thou/uL (130-400); RBC Distribution Width 13.4 % (11.5-14.5); Red Blood Cell (RBC) Count 5.61 mill/uL (4.70-6.10); White Blood Cell (WBC) Count 6.5 thou/uL (4.8-10.8)
[2019-05-04 14:50] LABS: ALT (SGPT) 50 U/L (8-55); AST (SGOT) 23 U/L (5-34); Albumin 4.6 g/dL (3.5-5.0); Alkaline Phosphatase 109 U/L (40-110); Anion Gap 16 mmol/L (10-20); BUN (Urea Nitrogen) 16 mg/dL (8.9-20.6); Bilirubin, Total 0.9 mg/dL (0.2-1.2); CK (CPK) 325 U/L (30-200); Calc. Creatinine Clearance 0 mL/min (70-130); Calcium 9.8 mg/dL (7.8-10.44); Carbon Dioxide 22 mmol/L (22-29); Chloride 100 mmol/L (98-107); Estimated GFR-MDRD 74; Globulin 3.5 g/dL (2.4-3.5); Glucose 281 mg/dL (70-105); Potassium 3.8 mmol/L (3.5-5.1); Protein, Total 8.1 g/dL (6.0-8.3); Sodium 134 mmol/L (136-145)
[2019-05-04] MEDS ORDERED: Ketorolac Tromethamine 30 MG/ML VIAL ONE (15:19)
[2019-05-04 16:55] LABS: Troponin I Less than 0.010 ng/mL (< 0.028)
== END 2019-05-04 17:42 | disposition home or self-care (01) ==
LOC: ERS 13:34
DX: R07.89 Other chest pain (principal); I10 Essential (primary) hypertension; E03.9 Hypothyroidism, unspecified; E66.9 Obesity, unspecified; G47.30 Sleep apnea, unspecified
CPT/HCPCS: 36415; 36416; 71046; 80053; 82550; 84484; 85025; 93005; 96374; J1885

== ENCOUNTER 2019-05-18 17:54 | Emergency (ER) | payer BC | END 2019-05-18 18:58 | disposition home or self-care (01) | LOC: ERS 17:54 | DX: N48.1 Balanitis (principal); B37.0 Candidal stomatitis; R73.9 Hyperglycemia, unspecified; E66.9 Obesity, unspecified; E03.9 Hypothyroidism, unspecified; I10 Essential (primary) hypertension; G47.30 Sleep apnea, unspecified; Z79.899 Other long term (current) drug therapy | CPT/HCPCS: 36416; 99283 ==

== ENCOUNTER 2020-03-12 21:51 | Emergency (ER) | payer BC ==
[2020-03-12] MEDS ORDERED: Ondansetron PF 4 MG/2 ML Vial ONE (22:30)
[2020-03-12] MEDS ORDERED: Morphine 4 MG/ML VIAL ONE (22:30)
[2020-03-12] MEDS ORDERED: Ketorolac Tromethamine 30 MG/ML VIAL ONE (22:30)
[2020-03-12 22:38] LABS: Bilirubin Negative (Negative); Blood, Urine Negative (Negative); Clarity Extra Turbid (Clear); Glucose, Urine (Dipstick) Normal (Negative); Ketone, Urine Negative (Negative); Leukocyte Negative Leu/uL (Negative); Nitrite Negative (Negative); Protein, Urine (Dipstick) Negative (Neg-Trace); Specific Gravity, Urine 1.022 (1.002-1.036); Urobilinogen Normal mg/dL (Less than 2)
[2020-03-12 22:40] LABS: #Basophils 0.1 thou/uL (0.0-0.2); #Eosinphils 0.2 thou/uL (0.0-0.7); #Lymphocytes 2.4 thou/uL (1.20-3.40); #Monocytes 0.4 thou/uL (0.11-0.59); #Neutrophils 2.7 thou/uL (1.40-6.50); %Basophils 1.8 % (0.0-1.0); %Eosinophils 3.3 % (0.0-10.0); %Lymphocytes 41.7 % (21.0-51.0); %Monocytes 7.5 % (0.0-10.0); %Neutrophils 45.7 % (42.0-75.0); Hemoglobin 15.6 g/dL (14.0-18.0); Mean Corpuscular Hemoglobin 29.6 pg (27.0-31.0); Mean Corpuscular Volume 89.4 fL (78.0-98.0); Mean Platelet Volume 10.4 fL (7.4-10.4); Platelet Count 158 thou/uL (130-400); RBC Distribution Width 14.5 % (11.5-14.5); Red Blood Cell (RBC) Count 5.29 mill/uL (4.70-6.10); White Blood Cell (WBC) Count 5.8 thou/uL (4.8-10.8)
--- NOTE | 2020-03-12 22:41 | CT ---
CT ABDOMEN NONCONTRAST CT PELVIS NONCONTRAST: (Urolithiasis protocol) DATE: 03/12/2020 HISTORY: 40-year-old male with right flank pain TECHNIQUE: IV injection of iodinated contrast media: None Oral contrast media: None FINDINGS: Other than for urolithiasis, the lack of IV and oral contrast limits the evaluation. Liver: No contour abnormalities. Diffusely low hepatic attenuation: Fatty liver Spleen: No splenomegaly. Pancreas: No contour abnormalities. Adrenals: No mass. Kidneys: No nephrolithiasis or overt hydronephrosis. Ureters: No calculi. Bladder: No calculi. Abdominal aorta: No aneurysm. Small bowel: No dilation. Colon: No adjacent fat stranding. Appendix: Surgically absent. Free air: None Free fluid: None Lumbar spine: Vertebral body heights are maintained. No spondylolysis or spondylolisthesis. IMPRESSION: 1.) No acute findings. 2.) No urolithiasis or obstructive uropathy. 3) hepatic steatosis
[2020-03-12] MEDS ORDERED: Ondansetron ODT 4 MG TAB ONE (22:43)
[2020-03-12 22:46] LABS: ALT (SGPT) 49 U/L (8-55); AST (SGOT) 31 U/L (5-34); Albumin 4.1 g/dL (3.5-5.0); Alkaline Phosphatase 64 U/L (40-110); Anion Gap 16 mmol/L (10-20); BUN (Urea Nitrogen) 12 mg/dL (8.9-20.6); Bilirubin, Total 0.5 mg/dL (0.2-1.2); Calc. Creatinine Clearance 0 mL/min (70-130); Calcium 9.3 mg/dL (7.8-10.44); Carbon Dioxide 22 mmol/L (22-29); Chloride 106 mmol/L (98-107); Globulin 4.1 g/dL (2.4-3.5); Glucose 138 mg/dL (70-105); Potassium 3.8 mmol/L (3.5-5.1); Protein, Total 8.2 g/dL (6.0-8.3); Sodium 140 mmol/L (136-145)
== END 2020-03-12 23:12 | disposition home or self-care (01) ==
LOC: ERS 21:51
DX: M54.5 Low back pain (principal); E03.9 Hypothyroidism, unspecified; E66.9 Obesity, unspecified; G47.30 Sleep apnea, unspecified; I10 Essential (primary) hypertension; E11.9 Type 2 diabetes mellitus without complications
CPT/HCPCS: 74176; 80053; 81003; 84484; 85025; 93005; 96374; 96375; J1885; J2270; J2405; Q0162

== ENCOUNTER 2020-08-03 21:02 | Emergency (ER) | payer BC ==
[2020-08-03 23:09] LABS: ALT (SGPT) 47 U/L (8-55); AST (SGOT) 29 U/L (5-34); Alkaline Phosphatase 89 U/L (40-110); Anion Gap 11 mmol/L (10-20); BUN (Urea Nitrogen) 13 mg/dL (8.9-20.6); Bilirubin, Total 0.4 mg/dL (0.2-1.2); Calc. Creatinine Clearance 0 mL/min (70-130); Calcium 9.5 mg/dL (7.8-10.44); Carbon Dioxide 28 mmol/L (22-29); Chloride 101 mmol/L (98-107); Globulin 3.9 g/dL (2.4-3.5); Glucose 278 mg/dL (70-105); Potassium 3.8 mmol/L (3.5-5.1); Protein, Total 7.9 g/dL (6.0-8.3); Sodium 136 mmol/L (136-145)
[2020-08-03 23:23] LABS: #Eosinphils 0.1 thou/uL (0.0-0.7); #Lymphocytes 2.3 thou/uL (1.20-3.40); #Monocytes 0.5 thou/uL (0.11-0.59); #Neutrophils 2.4 thou/uL (1.40-6.50); %Basophils 0.5 % (0.0-1.0); %Eosinophils 2.8 % (0.0-10.0); %Lymphocytes 43.4 % (21.0-51.0); %Monocytes 8.5 % (0.0-10.0); %Neutrophils 44.9 % (42.0-75.0); Hemoglobin 14.6 g/dL (14.0-18.0); Mean Corpuscular HGB CONC 31.7 g/dL (32.0-36.0); Mean Corpuscular Hemoglobin 28.6 pg (27.0-31.0); Mean Corpuscular Volume 90.3 fL (78.0-98.0); Mean Platelet Volume 10.9 fL (7.4-10.4); Platelet Count 156 thou/uL (130-400); Red Blood Cell (RBC) Count 5.11 mill/uL (4.70-6.10); White Blood Cell (WBC) Count 5.3 thou/uL (4.8-10.8)
== END 2020-08-04 02:18 | disposition home or self-care (01) ==
LOC: ERS 21:02
DX: R07.89 Other chest pain (principal); I10 Essential (primary) hypertension; E11.9 Type 2 diabetes mellitus without complications; E03.9 Hypothyroidism, unspecified; G47.30 Sleep apnea, unspecified
CPT/HCPCS: 36415; 71046; 80053; 84484; 85025; 93005

== ENCOUNTER 2020-09-07 18:08 | Emergency (ER) | payer BC ==
[2020-09-07 18:50] LABS: #Basophils 0.1 thou/uL (0.0-0.2); #Eosinphils 0.1 thou/uL (0.0-0.7); #Lymphocytes 2.1 thou/uL (1.20-3.40); #Monocytes 0.5 thou/uL (0.11-0.59); #Neutrophils 3.1 thou/uL (1.40-6.50); %Eosinophils 1.4 % (0.0-10.0); %Lymphocytes 35.9 % (21.0-51.0); %Monocytes 7.8 % (0.0-10.0); %Neutrophils 53.9 % (42.0-75.0); Hemoglobin 16.1 g/dL (14.0-18.0); Mean Corpuscular HGB CONC 32.2 g/dL (32.0-36.0); Mean Corpuscular Hemoglobin 28.5 pg (27.0-31.0); Mean Corpuscular Volume 88.4 fL (78.0-98.0); Platelet Count 160 thou/uL (130-400); RBC Distribution Width 12.5 % (11.5-14.5); Red Blood Cell (RBC) Count 5.66 mill/uL (4.70-6.10); White Blood Cell (WBC) Count 5.7 thou/uL (4.8-10.8)
[2020-09-07 18:54] LABS: Bilirubin Negative (Negative); Blood, Urine Negative (Negative); Clarity Clear (Clear); Glucose, Urine (Dipstick) Greater than 1000 mg/dL (Negative); Ketone, Urine Trace mg/dL (Negative); Leukocyte Negative Leu/uL (Negative); Nitrite Negative (Negative); Protein, Urine (Dipstick) Negative (Neg-Trace); Specific Gravity, Urine 1.025 (1.002-1.036); Urobilinogen Normal mg/dL (Less than 2)
[2020-09-07 19:04] LABS: ALT (SGPT) 35 U/L (8-55); AST (SGOT) 17 U/L (5-34); Alkaline Phosphatase 92 U/L (40-110); Anion Gap 19 mmol/L (10-20); BUN (Urea Nitrogen) 27 mg/dL (8.9-20.6); Bilirubin, Total 0.6 mg/dL (0.2-1.2); Calc. Creatinine Clearance 0 mL/min (70-130); Calcium 9.5 mg/dL (7.8-10.44); Carbon Dioxide 20 mmol/L (22-29); Chloride 92 mmol/L (98-107); Lipase 81 U/L (8-78); Potassium 3.9 mmol/L (3.5-5.1); Sodium 127 mmol/L (136-145)
[2020-09-07 19:10] LABS: Glucose 632 mg/dL (70-105)
[2020-09-07 20:35] LABS: Actual Bicarbonate (HCO3v) 21 mEq/L (22-28); Analyzer IN Cardio ER; Base Excess -2.6 mEq/L (-2.0 to +3.0); Calcium, Ionized (venous) 1.14 mmol/L (1.16-1.32); Chloride (VBG) 93 mmol/L (98-106); Hemoglobin (Hb) 17.3 g/dL (13.2-17.3); Potassium (VBG) 3.83 mmol/L (3.70-5.30); Sodium 130.4 mmol/L (133-146); pH (venous) 7.41 (7.32-7.43)
[2020-09-07] MEDS ORDERED: Insulin Regular 300 UNITS/3 ML VIAL ONE (20:59)
== END 2020-09-07 22:03 | disposition home or self-care (01) ==
LOC: ERS 18:08
DX: E11.65 Type 2 diabetes mellitus with hyperglycemia (principal); I10 Essential (primary) hypertension; E03.9 Hypothyroidism, unspecified; Z79.84 Long term (current) use of oral hypoglycemic drugs
CPT/HCPCS: 36415; 36416; 71045; 80053; 81003; 82010; 82805; 83690; 84484; 85025; 93005; J1815

== ENCOUNTER 2020-09-11 09:03 | Emergency (ER) | payer BC ==
[2020-09-11 09:46] LABS: #Basophils 0.1 thou/uL (0.0-0.2); #Eosinphils 0.1 thou/uL (0.0-0.7); #Lymphocytes 1.8 thou/uL (1.20-3.40); #Monocytes 0.5 thou/uL (0.11-0.59); #Neutrophils 2.6 thou/uL (1.40-6.50); %Basophils 1.3 % (0.0-1.0); %Lymphocytes 35.4 % (21.0-51.0); %Monocytes 9.6 % (0.0-10.0); %Neutrophils 51.6 % (42.0-75.0); Hemoglobin 15.6 g/dL (14.0-18.0); Mean Corpuscular HGB CONC 33.7 g/dL (32.0-36.0); Mean Corpuscular Hemoglobin 29.5 pg (27.0-31.0); Mean Corpuscular Volume 87.5 fL (78.0-98.0); Mean Platelet Volume 11.5 fL (7.4-10.4); Platelet Count 173 thou/uL (130-400); RBC Distribution Width 12.6 % (11.5-14.5)
[2020-09-11 09:54] LABS: Actual Bicarbonate (HCO3v) 24 mEq/L (22-28); Base Excess 0.6 mEq/L (-2.0 to +3.0); Calcium, Ionized (venous) 1.09 mmol/L (1.16-1.32); Chloride (VBG) 94 mmol/L (98-106); Hemoglobin (Hb) 16.3 g/dL (13.2-17.3); Potassium (VBG) 5.28 mmol/L (3.70-5.30); Sodium 129.3 mmol/L (133-146); pH (venous) 7.45 (7.32-7.43)
[2020-09-11 09:58] LABS: Analyzer IN Cardio ER
[2020-09-11 10:00] LABS: Bilirubin Negative (Negative); Blood, Urine Negative (Negative); Glucose, Urine (Dipstick) >=1000 mg/dL (Negative); Ketone, Urine 15 mg/dL (Negative); Leukocyte Negative (Negative); Nitrite Negative (Negative); Protein, Urine (Dipstick) Negative (Neg-Trace); Urobilinogen 0.2 mg/dL (Less than 2); pH, Urine 5.5 (5.0-9.0)
[2020-09-11 10:02] LABS: Clarity Clear (Clear)
[2020-09-11 10:09] LABS: RBC/HPF None Seen HPF (0-3); Squamous Epithelial None Seen HPF (0-3); WBC/HPF None Seen HPF (0-3)
[2020-09-11 10:10] LABS: Bacteria/HPF None Seen HPF (None Seen)
[2020-09-11 10:36] LABS: ALT (SGPT) 41 U/L (8-55); AST (SGOT) 35 U/L (5-34); Albumin 3.9 g/dL (3.5-5.0); Alkaline Phosphatase 74 U/L (40-110); Anion Gap 19 mmol/L (10-20); BUN (Urea Nitrogen) 20 mg/dL (8.9-20.6); Calc. Creatinine Clearance 0 mL/min (70-130); Calcium 9.4 mg/dL (7.8-10.44); Carbon Dioxide 17 mmol/L (22-29); Chloride 95 mmol/L (98-107); Globulin 4.3 g/dL (2.4-3.5); Glucose 534 mg/dL (70-105); Magnesium 1.7 mg/dL (1.6-2.6); Phosphorus 3.8 mg/dL (2.3-4.7); Potassium 4.6 mmol/L (3.5-5.1); Protein, Total 8.2 g/dL (6.0-8.3); Sodium 126 mmol/L (136-145)
[2020-09-11] MEDS ORDERED: Insulin Regular 300 UNITS/3 ML VIAL ONE (11:13)
== END 2020-09-11 14:15 | disposition home or self-care (01) ==
LOC: ERS 09:03
DX: E11.65 Type 2 diabetes mellitus with hyperglycemia (principal); E86.0 Dehydration; E03.9 Hypothyroidism, unspecified; I10 Essential (primary) hypertension; Z79.84 Long term (current) use of oral hypoglycemic drugs
CPT/HCPCS: 36416; 80053; 81003; 82010; 82805; 83735; 84100; 85025; 99285; J1815

== ENCOUNTER 2020-11-20 11:39 | Emergency (ER) | payer BC ==
[2020-11-20] MEDS ORDERED: Ketorolac Tromethamine 30 MG/ML VIAL ONE (12:42)
[2020-11-20] MEDS ORDERED: Acetaminophen 500 MG TAB ONE (12:42)
== END 2020-11-20 12:55 | disposition home or self-care (01) ==
LOC: ERS 11:39
DX: R51.9 Headache, unspecified (principal); E03.9 Hypothyroidism, unspecified; G47.30 Sleep apnea, unspecified; I10 Essential (primary) hypertension; E11.9 Type 2 diabetes mellitus without complications; Z79.84 Long term (current) use of oral hypoglycemic drugs
CPT/HCPCS: 96372; 99283; J1885

== ENCOUNTER 2021-08-02 00:38 | Emergency (ER) | payer BC ==
[2021-08-02 01:13] LABS: Hemoglobin 15.3 g/dL (14.0-18.0); Mean Corpuscular HGB CONC 32.7 g/dL (32.0-36.0); Mean Corpuscular Hemoglobin 29.9 pg (27.0-31.0); Mean Corpuscular Volume 91.6 fL (78.0-98.0); Mean Platelet Volume 9.8 fL (7.4-10.4); Platelet Count 133 thou/uL (130-400); RBC Distribution Width 13.8 % (11.5-14.5); Red Blood Cell (RBC) Count 5.13 mill/uL (4.70-6.10); White Blood Cell (WBC) Count 4.6 thou/uL (4.8-10.8)
[2021-08-02] MEDS ORDERED: Morphine 4 MG/ML VIAL ONE ×2 (01:17→01:23)
[2021-08-02] MEDS ORDERED: Ondansetron PF 4 MG/2 ML Vial ONE ×2 (01:18→01:24)
[2021-08-02] MEDS ORDERED: Aspirin Chewable 81 MG TAB ONE ×2 (01:18→01:24)
[2021-08-02 01:32] LABS: ALT (SGPT) 39 U/L (8-55); AST (SGOT) 17 U/L (5-34); Albumin 3.8 g/dL (3.5-5.0); Alkaline Phosphatase 60 U/L (40-110); Anion Gap 12 mmol/L (10-20); BUN (Urea Nitrogen) 13 mg/dL (8.9-20.6); Bilirubin, Total 0.9 mg/dL (0.2-1.2); Calc. Creatinine Clearance 0 mL/min (70-130); Calcium 9.4 mg/dL (7.8-10.44); Carbon Dioxide 26 mmol/L (22-29); Chloride 102 mmol/L (98-107); Globulin 3.5 g/dL (2.4-3.5); Glucose 206 mg/dL (70-105); Lipase 57 U/L (8-78); Potassium 3.5 mmol/L (3.5-5.1); Protein, Total 7.3 g/dL (6.0-8.3); Sodium 136 mmol/L (136-145)
[2021-08-02 01:34] LABS: Band 1 % (5-11); Eosinophils 3 % (0-10); Lymphocytes 49 % (21-51); MDiff Complete? YES; Monocytes 8 % (0-10); Neutrophil 37 % (42-75); Platelet Morphology Comment Appears Adequate; RBC Morphology Normal; Reactive Lymphocytes 2 % (0-10)
== END 2021-08-02 04:57 | disposition home or self-care (01) ==
LOC: ERS 00:38
DX: R07.89 Other chest pain (principal); E11.9 Type 2 diabetes mellitus without complications; I10 Essential (primary) hypertension; E03.9 Hypothyroidism, unspecified; Z79.899 Other long term (current) drug therapy
CPT/HCPCS: 36415; 71045; 80053; 83690; 84484; 85025; 93005; 96374; 96375; J2270; J2405

== ENCOUNTER 2021-10-01 03:30 | Emergency (ER) | payer BC ==
[2021-10-01] MEDS ORDERED: Ketorolac Tromethamine 30 MG/ML VIAL ONE (05:49)
== END 2021-10-01 06:13 | disposition home or self-care (01) ==
LOC: ERS 03:30
DX: R51.9 Headache, unspecified (principal); M54.2 Cervicalgia; E03.9 Hypothyroidism, unspecified; I10 Essential (primary) hypertension; E11.9 Type 2 diabetes mellitus without complications; G47.30 Sleep apnea, unspecified; Z79.84 Long term (current) use of oral hypoglycemic drugs
CPT/HCPCS: 36416; 93005; 96374; J1885

== ENCOUNTER 2023-05-10 02:38 | Emergency (ER) | payer BC ==
[2023-05-10] MEDS ORDERED: Ketorolac Tromethamine 30 MG (1 mL) VIAL ONE (03:32)
[2023-05-10 04:15] LABS: Actual Bicarbonate (HCO3v) 24.3 mEq/L (22-28); Base Excess 1.2 mEq/L (-2.0 to +3.0); Calcium, Ionized (venous) 1.12 mmol/L (1.16-1.32); Chloride (VBG) 98 mmol/L (98-106); Hematocrit-VBG 46 % (42.0-52.0); Hemoglobin (Hb) 15.8 g/dL (13.1-17.2); Potassium (VBG) 4.59 mmol/L (3.70-5.30); Sodium 134 mmol/L (133-146); pH (venous) 7.465 (7.32-7.43)
[2023-05-10 04:26] LABS: #Eosinphils 0.1 thou/uL (0.0-0.7); #Monocytes 0.5 thou/uL (0.11-0.59); #Neutrophils 2.2 thou/uL (1.40-6.50); %Basophils 0.4 % (0.0-1.0); %Eosinophils 1.8 % (0.0-10.0); %Monocytes 9.6 % (0.0-10.0); Hematocrit 45.2 % (42.0-52.0); Hemoglobin 15.2 g/dL (14.0-18.0); Mean Corpuscular HGB CONC 33.6 g/dL (32.0-36.0); Mean Corpuscular Volume 83.4 fl (78.0-98.0); Mean Platelet Volume 13.9 fL (7.4-10.4); Platelet Count 166 10x3/uL (130-400); RBC Distribution Width 13.8 % (11.5-14.5); Red Blood Cell (RBC) Count 5.42 mill/uL (4.70-6.10); White Blood Cell (WBC) Count 5.4 10x3/uL (4.8-10.8)
[2023-05-10] MEDS ORDERED: Metoclopramide HCl 10 MG (2 mL) VIAL ONE (04:58)
[2023-05-10 05:22] LABS: ALT (SGPT) 40 U/L (8-55); AST (SGOT) 26 U/L (5-34); Albumin 4.2 g/dL (3.5-5.0); Alkaline Phosphatase 83 U/L (40-110); Anion Gap 16 mmol/L (10-20); BUN (Urea Nitrogen) 16 mg/dL (8.9-20.6); Calc. Creatinine Clearance 0 mL/min (70-130); Calcium 9.8 mg/dL (7.8-10.44); Carbon Dioxide 23 mmol/L (22-29); Chloride 98 mmol/L (98-107); Estimated GFR 74; Globulin 3.9 g/dL (2.4-3.5); Glucose 336 mg/dL (70-105); Potassium 4.1 mmol/L (3.5-5.1); Protein, Total 8.1 g/dL (6.0-8.3); Sodium 133 mmol/L (136-145)
[2023-05-10 05:37] LABS: Troponin I Less than 0.010 ng/mL (< 0.028)
[2023-05-10 05:53] LABS: CellaVision Operator ID lab.abc; Large Platelets 9.9 % (0-5); Platelet Adequacy Comment Platelets Normal; RBC Morphology Within Normal Limits; Smudge Cells 24.8 %
== END 2023-05-10 06:30 | disposition home or self-care (01) ==
LOC: ERS 02:38
DX: R51.9 Headache, unspecified (principal); R07.9 Chest pain, unspecified; I10 Essential (primary) hypertension; E11.9 Type 2 diabetes mellitus without complications; Z79.84 Long term (current) use of oral hypoglycemic drugs; Z55.6 Problems related to health literacy
CPT/HCPCS: 36416; 70450; 80053; 82010; 82805; 84484; 85025; 93005; 96361; 96365; 96366; 96375; J1885; J2765

== ENCOUNTER 2023-08-05 22:46 | Emergency (ER) | payer BC ==
[2023-08-05 23:36] LABS: #Basophils Less than 0.03 10x3/uL (0.0-0.2); %Basophils 0.5 % (0.0-1.0); %Eosinophils 1.4 % (0.0-10.0); %Lymphocytes 52.6 % (21.0-51.0); %Neutrophils 38.3 % (42.0-75.0); Hematocrit 46.5 % (42.0-52.0); Hemoglobin 15.2 g/dL (14.0-18.0); Mean Corpuscular HGB CONC 32.7 g/dL (32.0-36.0); Mean Corpuscular Hemoglobin 28.9 pg (27.0-31.0); Mean Corpuscular Volume 88.4 fL (78.0-98.0); Mean Platelet Volume 12.3 fL (7.4-10.4); Platelet Count 166 10x3/uL (130-400); RBC Distribution Width 13.6 % (11.5-14.5); Red Blood Cell (RBC) Count 5.26 mill/uL (4.70-6.10)
[2023-08-06 00:03] LABS: Troponin I Less than 0.010 ng/mL (< 0.028)
[2023-08-06 00:10] LABS: ALT (SGPT) 33 U/L (8-55); AST (SGOT) 15 U/L (5-34); Albumin 3.5 g/dL (3.5-5.0); Alkaline Phosphatase 68 U/L (40-110); Anion Gap 14 mmol/L (10-20); BUN (Urea Nitrogen) 12 mg/dL (8.9-20.6); Bilirubin, Total 0.7 mg/dL (0.2-1.2); Calc. Creatinine Clearance 0 mL/min (70-130); Calcium 9.5 mg/dL (7.8-10.44); Carbon Dioxide 22 mmol/L (22-29); Chloride 108 mmol/L (98-107); Estimated GFR 102; Globulin 3.4 g/dL (2.4-3.5); Glucose 159 mg/dL (70-105); Potassium 3.6 mmol/L (3.5-5.1); Protein, Total 6.9 g/dL (6.0-8.3); Sodium 140 mmol/L (136-145)
[2023-08-06] MEDS ORDERED: Ketorolac Tromethamine 30 MG (1 mL) VIAL ONE (01:19)
[2023-08-06 07:18] LABS: Troponin I Less than 0.010 ng/mL (< 0.028)
== END 2023-08-06 03:35 | disposition home or self-care (01) ==
LOC: ERS 22:46
DX: R07.89 Other chest pain (principal); E11.9 Type 2 diabetes mellitus without complications; I10 Essential (primary) hypertension
CPT/HCPCS: 36415; 71045; 80053; 83880; 84484; 85025; 93005; 94760; 96372; J1885

== ENCOUNTER 2024-01-21 05:43 | Emergency (ER) | payer BC ==
[2024-01-21 06:54] LABS: #Basophils 0.03 10x3/uL (0.0-0.2); %Basophils 0.6 % (0.0-1.0); %Eosinophils 2.5 % (0.0-10.0); %Lymphocytes 41.2 % (21.0-51.0); %Monocytes 9.1 % (0.0-10.0); %Neutrophils 46.4 % (42.0-75.0); Hemoglobin 15.7 g/dL (14.0-18.0); Mean Corpuscular HGB CONC 33.4 g/dL (32.0-36.0); Mean Corpuscular Hemoglobin 28.2 pg (27.0-31.0); Mean Corpuscular Volume 84.4 fL (78.0-98.0); Mean Platelet Volume 12.1 fL (7.4-10.4); Platelet Count 168 10x3/uL (130-400); RBC Distribution Width 14.6 % (11.5-14.5); Red Blood Cell (RBC) Count 5.57 mill/uL (4.70-6.10)
[2024-01-21 07:20] LABS: ALT (SGPT) 37 U/L (8-55); AST (SGOT) 18 U/L (5-34); Albumin 3.6 g/dL (3.5-5.0); Alkaline Phosphatase 67 U/L (40-110); Anion Gap 12 mmol/L (10-20); BUN (Urea Nitrogen) 14 mg/dL (8.9-20.6); Bilirubin, Total 0.7 mg/dL (0.2-1.2); Calc. Creatinine Clearance 0 mL/min (70-130); Calcium 9.2 mg/dL (7.8-10.44); Carbon Dioxide 21 mmol/L (22-29); Chloride 106 mmol/L (98-107); Estimated GFR 98; Globulin 3.8 g/dL (2.4-3.5); Glucose 223 mg/dL (70-105); Potassium 3.7 mmol/L (3.5-5.1); Protein, Total 7.4 g/dL (6.0-8.3); Sodium 135 mmol/L (136-145)
== END 2024-01-21 10:00 | disposition home or self-care (01) ==
LOC: ERS 05:43
DX: H66.92 Otitis media, unspecified, left ear (principal); J34.1 Cyst and mucocele of nose and nasal sinus; E11.65 Type 2 diabetes mellitus with hyperglycemia; I10 Essential (primary) hypertension; E03.9 Hypothyroidism, unspecified; Z79.84 Long term (current) use of oral hypoglycemic drugs; Z79.899 Other long term (current) drug therapy
CPT/HCPCS: 36415; 70480; 80053; 85025

== ENCOUNTER 2024-03-15 22:52 | Emergency (ER) | payer BC ==
[2024-03-16 00:11] LABS: #Basophils 0.04 10x3/uL (0.0-0.2); %Basophils 0.8 % (0.0-1.0); %Eosinophils 2.1 % (0.0-10.0); %Lymphocytes 46.8 % (21.0-51.0); %Monocytes 8.3 % (0.0-10.0); %Neutrophils 41.8 % (42.0-75.0); Hematocrit 47.5 % (42.0-52.0); Hemoglobin 16.3 g/dL (14.0-18.0); Mean Corpuscular HGB CONC 34.3 g/dL (32.0-36.0); Mean Corpuscular Hemoglobin 27.8 pg (27.0-31.0); Mean Corpuscular Volume 80.9 fL (78.0-98.0); Mean Platelet Volume 12.6 fL (7.4-10.4); Platelet Count 192 10x3/uL (130-400); RBC Distribution Width 13.6 % (11.5-14.5); Red Blood Cell (RBC) Count 5.87 mill/uL (4.70-6.10)
[2024-03-16 00:36] LABS: Troponin I Less than 0.010 ng/mL (< 0.028)
[2024-03-16] MEDS ORDERED: Insulin Regular, Human 100 UNIT/ML 10 ML VIAL ONE (00:37)
[2024-03-16] MEDS ORDERED: Ketorolac Tromethamine 30 MG (1 mL) VIAL ONE (00:37)
[2024-03-16 00:42] LABS: ALT (SGPT) 32 U/L (8-55); AST (SGOT) 21 U/L (5-34); Albumin 3.9 g/dL (3.5-5.0); Alkaline Phosphatase 90 U/L (40-110); Anion Gap 18 mmol/L (10-20); BUN (Urea Nitrogen) 15 mg/dL (8.9-20.6); Bilirubin, Total 0.3 mg/dL (0.2-1.2); Calc. Creatinine Clearance 0 mL/min (70-130); Calcium 9.9 mg/dL (7.8-10.44); Carbon Dioxide 22 mmol/L (22-29); Chloride 97 mmol/L (98-107); Estimated GFR 59; Globulin 4.8 g/dL (2.4-3.5); Glucose 479 mg/dL (70-105); Potassium 4.2 mmol/L (3.5-5.1); Protein, Total 8.7 g/dL (6.0-8.3); Sodium 133 mmol/L (136-145)
[2024-03-16 01:34] LABS: Bacteria/HPF None Seen HPF (None Seen); Bilirubin Negative (Negative); Blood, Urine Negative (Negative); CAUTI Indications for Culture Pelvic or flank pain; Clarity Clear (Clear); Glucose, Urine (Dipstick) Greater than 1000 mg/dL (Negative); Ketone, Urine Negative (Negative); Leukocyte Negative Leu/uL (Negative); Nitrite Negative (Negative); Protein, Urine (Dipstick) Negative (Neg-Trace); RBC/HPF None Seen HPF (0-3); Specific Gravity, Urine 1.029 (1.002-1.036); Squamous Epithelial None Seen HPF (0-3); Urobilinogen Normal mg/dL (Less than 2); WBC/HPF None Seen HPF (0-3); pH, Urine 5.5 (5.0-9.0)
[2024-03-16 01:37] LABS: Urine Culture Reflex No No
[2024-03-16 02:18] LABS: Actual Bicarbonate (HCO3v) 26.6 mEq/L (22-28); Analyzer IN Cardio ER; Base Excess 1.5 mEq/L (-2.0 to +3.0); Calcium, Ionized (venous) 1.17 mmol/L (1.16-1.32); Chloride (VBG) 99 mmol/L (98-106); Hematocrit-VBG 49 % (42.0-52.0); Hemoglobin (Hb) 16.5 g/dL (13.1-17.2); Potassium (VBG) 3.76 mmol/L (3.70-5.30); Sodium 136 mmol/L (133-146); pH (venous) 7.404 (7.32-7.43)
[2024-03-16] MEDS ORDERED: Ondansetron PF 4 MG/2 ML Vial ONE (02:58)
== END 2024-03-16 04:42 | disposition home or self-care (01) ==
LOC: ERS 22:52
DX: E11.65 Type 2 diabetes mellitus with hyperglycemia (principal); L03.90 Cellulitis, unspecified; R11.2 Nausea with vomiting, unspecified; I10 Essential (primary) hypertension
CPT/HCPCS: 36415; 36416; 80053; 81001; 82805; 84484; 85025; 93005; 96374; 96375; 96376; J1815; J1885; J2405